=== PATIENT | male | born 1980 ===

== ENCOUNTER 2017-08-18 02:43 | Emergency (ER) | payer SELFPAY ==
[2017-08-18 03:09] VITALS: O2SAT 99
[2017-08-18 03:37] LABS: BASO # 0.1 K/uL (0.0-0.2); EOS # 0.1 K/uL (0.0-0.7); EOS % 0.8 % (0.0-4.0); HEMOGLOBIN 15.2 g/dL (12.0-18.0); LYMPH # 0.8 K/uL (1.0-4.3); LYMPH % 11.5 % (20.0-40.0); MEAN CELL VOLUME 96.6 fl (80.0-94.0); MEAN CORPUSCULAR HEMOGLOBIN 32.7 pg (27.0-31.0); MEAN CORPUSCULAR HGB CONC 33.9 g/dL (33.0-37.0); MEAN PLATELET VOLUME 9.1 fl (7.2-11.7); MONO # 0.5 K/uL (0.0-0.8); MONO % 7.3 % (0.0-10.0); NEUT # 5.7 K/uL (1.8-7.0); NEUT % 79.4 % (50.0-75.0); NRBC % 0.2 % (0.0-0.0); RBC 4.66 Mil/uL (4.40-5.90); RED CELL DISTRIBUTION WIDTH 14.2 % (11.5-14.5); WHITE BLOOD COUNT 7.2 K/uL (4.8-10.8)
[2017-08-18 03:42] LABS: ALB/GLOB RATIO 1.1 (1.0-2.1); ALBUMIN 4.7 g/dL (3.5-5.0); ALT/SGPT 482 U/L (21-72); AST/SGOT 634 U/L (17-59); BLOOD UREA NITROGEN 5 mg/dl (9-20); CALCIUM 9.7 mg/dL (8.4-10.2); GFR AFRICAN-AMERICAN > 60; GFR NON-AFRICAN AMERICAN > 60; LIPASE 501 U/L (23-300)
[2017-08-18] MEDS ORDERED: Lactated Ringer's 1,000 ML IV SCH (03:45)
--- NOTE | 2017-08-18 03:50 | ED PDOC ---
HPI: Abdomen Time Seen by Provider: 08/18/17 03:03 Chief Complaint (Nursing): Abdominal Pain Chief Complaint (Provider): vomiting History Per: Patient History/Exam Limitations: no limitations Onset/Duration Of Symptoms: Days (1 day ago) Current Symptoms Are (Timing): Still Present Additional Complaint(s): 37 yo male with a history of alcohol abuse, presents to the Ed complaining of vomiting, onset of 1 day ago. Patient states he was drinking all day 3 days ago and hasn't drank any alcohol since. However, he report 2 episodes of vomiting 1 day prior to arrival. He states that he is unable to sleep and feels dehydrated , but denies any abdominal pain at this time. Of note, the patient does not want any medication, but solely requests a liter of IV fluids. Past Medical History Reviewed: Historical Data, Nursing Documentation, Vital Signs Vital Signs: Last Vital Signs Temp 98.6 F 08/18/17 03:05 Pulse 85 08/18/17 03:05 Resp 16 08/18/17 03:05 BP 156/111 H 08/18/17 03:05 Pulse Ox 99 08/18/17 03:52 - Medical History PMH: No Chronic Diseases Denies: Chronic Kidney Disease - Surgical History Surgical History: Appendectomy - Family History Family History: States: Unknown Family Hx - Social History Current smoker - smoking cessation education provided: No Ex-Smoker (has not smoked in the last 12 months): No Alcohol: > 2 Drinks/Day Drugs: Denies - Immunization History Hx Tetanus Toxoid Vaccination: No Hx Influenza Vaccination: No Hx Pneumococcal Vaccination: No - Home Medications Home Medications: Ambulatory Orders Medication Instructions Recorded traMADol [Ultram] 50 mg PO Q6 PRN 04/24/17 - Allergies Allergies/Adverse Reactions: Allergies Allergy/AdvReac Type Severity Reaction Status Date / Time No Known Allergies Allergy Verified 04/24/17 09:46 Review of Systems ROS Statement: Except As Marked, All Systems Reviewed And Found Negative Constitutional: Positive for: Other (dehydrated and can't sleep) Gastrointestinal: Positive for: Vomiting. Negative for: Abdominal Pain Physical Exam - Reviewed Nursing Documentation Reviewed: Yes Vital Signs Reviewed: Yes - Physical Exam Appears: Positive for: Well, Non-toxic, No Acute Distress Head Exam: Positive for: ATRAUMATIC, NORMAL INSPECTION, NORMOCEPHALIC Skin: Positive for: Normal Color, Warm, DRY Eye Exam: Positive for: EOMI, Normal appearance, PERRL ENT: Positive for: Normal ENT Inspection Neck: Positive for: Normal, Painless ROM Cardiovascular/Chest: Positive for: Regular Rate, Rhythm. Negative for: Murmur Respiratory: Positive for: Normal Breath Sounds. Negative for: Respiratory Distress Gastrointestinal/Abdominal: Positive for: Normal Exam, Soft. Negative for: Tenderness Back: Positive for: Normal Inspection Extremity: Positive for: Normal ROM. Negative for: Pedal Edema, Deformity Neurologic/Psych: Positive for: Alert, Oriented. Negative for: Motor/Sensory Deficits - Laboratory Results Result Diagrams: 08/18/17 03:30 08/18/17 03:30 - ECG O2 Sat by Pulse Oximetry: 99 (RA) Pulse Ox Interpretation: Normal Medical Decision Making Medical Decision Making: Time: --03:13 Impression: --Dehydration Plan: --Zofran 4mg IVP --Lactated Ringers 1L IV Reassess Patient refused zofran. Feeling better after 1L IV fluids. Advised to f/u w/ clinic regarding abnormal LFTs. No pain upon discharge. Scribe Attestation: Documented by Ilir Dinh acting as a scribe for Gal Das MD. Provider Attestation: All medical record entries made by the Scribe were at my direction and personally dictated by me. I have reviewed the chart and agree that the record accurately reflects my personal performance of the history, physical exam, medical decision making, and the department course for this patient. I have also personally directed, reviewed, and agree with the discharge instructions and disposition. Disposition - Clinical Impression Clinical Impression: Vomiting - Disposition Referrals: [facility] [Outside] Disposition: Routine/Home Disposition Time: 05:00 Condition: IMPROVED Additional Instructions: Regine pruebas de hgado son anormales. Por favor, astrid un seguimiento con reed m dico de atencin primaria y un gastroenterlogo. Instructions: Nausea and Vomiting, Adult Forms: [facility] (Sami) Print Language: MONEGASQUE
[2017-08-18] MEDS ORDERED: Lactated Ringer's 1,000 ML IV STA (04:34)
[2017-08-18 05:45] VITALS: BP 144/81; PULSE 84; RESP 17; TEMP 98.3
== END 2017-08-18 05:29 | disposition home or self-care (01) ==
LOC: H.ER 02:43
DX: R11.10 Vomiting, unspecified (principal)
CPT/HCPCS: 80053; 83690; 85025; 96360; 99283; J7120